=== PATIENT | female | born 1955 | race African-American/Black ===

== ENCOUNTER 2017-03-23 11:04 | Emergency (ER) | payer OTHER ==
[~2017-03-23] VITALS: Ht 154.9 cm; Wt 86.2 kg
[~2017-03-23 11:04] MED LIST: BACTRIM DS TAB1 EAC1 ORAL; HYDROCHLOROTH12.5 M2 ORAL; HYDROCHLOROTHIA25 MG ORAL; IBUPROFEN600 MG ORAL; KEFLEX500 MG ORAL; LISINOPRIL10 MG ORAL; LISINOPRIL20 MG ORAL; MECLIZINE HCL25 MG ORAL; NORCO 5-325 TA1 EACH ORAL; PROTONIX40 MG ORAL
[2017-03-23] MEDS ORDERED: ATENOLOL25 MG ORAL (11:13)
[2017-03-23] MEDS ORDERED: Morphine Sulfate 4mg/ml Inj IVP ONE (11:30)
[2017-03-23 11:48] LABS: APPEARANCE,URINE CLEAR; KETONES,URINE NEGATIVE (NEGATIVE); LEUKOCYTE ESTERASE ,URINE NEGATIVE (NEGATIVE); NITRITE,URINE NEGATIVE (NEGATIVE); PH,URINE 6 (4.5-8.0); PROTEIN,URINE NEGATIVE (NEGATIVE); UROBILINOGEN,URINE NORMAL MG/DL (0.0-1.0)
[2017-03-23 11:49] LABS: BASOPHILS % (AUTO) 0.3 % (0.0-2.0); EOSINOPHILS % (AUTO) 0.4 % (0.0-3.0); LYMPHOCYTES % (AUTO) 27.5 % (20.0-45.0); MEAN CORPUSCULAR HEMOGLOBIN 27.3 PG (27.0-31.0); MEAN CORPUSCULAR VOLUME 85 FL (80-99); MEAN PLATELET VOLUME 6.6 FL (6.5-10.1); MONOCYTES % (AUTO) 7.2 % (1.0-10.0); NEUTROPHILS % (AUTO) 64.5 % (45.0-75.0); PLATELET COUNT 351 K/UL (150-450); RED BLOOD COUNT 4.97 M/UL (4.20-5.40); RED CELL DISTRIBUTION WIDTH 13.1 % (11.6-14.8)
[2017-03-23 11:55] VITALS: BP 127/65
[2017-03-23 11:59] LABS: TROPONIN I < 0.30 ng/mL (<=0.30)
[2017-03-23 12:00] LABS: ALANINE AMINOTRANSFERASE 30 U/L (3-33); ANION GAP 12 (5-15); ASPARTATE AMINO TRANSFERASE 15 U/L (5-40); CALCIUM 9.2 mg/dL (8.6-10.2); CARBON DIOXIDE 28 mEQ/L (20-30); CHLORIDE 100 mEQ/L (98-107); GLOMERULAR FILTRATION RATE > 60 mL/min (>60); HEMOLYSIS 5; LIPASE 17 U/L (< 60); POTASSIUM 3.9 mEQ/L (3.4-4.9); SODIUM 140 mEQ/L (135-145); TOTAL PROTEIN 8.1 g/dL (6.6-8.7)
--- NOTE | 2017-03-23 12:06 | Emergency Room Report ---
History of Present Illness General Chief Complaint: Abdominal Pain Source: Patient Present Illness HPI Patient present with complaints of mid abdominal pain Radiation bilaterally towards the back Denies any lower abdominal pain Patient has had increased nausea and vomiting Denies any diarrhea reports lack of bowel movement for the past 6 days Patient reports recent ER visit With imaging and blood work unfortunately not able to provide us any further information Pain is 10 out of 10 denies any fevers denies any dysuria frequency Allergies: Coded Allergies: STEVEN INHIBITORS (Verified Allergy, Unknown, 03/23/17) IBUPROFEN (Verified Allergy, Unknown, 03/23/17) TRAMADOL (Verified Allergy, Unknown, 03/23/17) Uncoded Allergies: STEVEN (Allergy, Unknown, 03/23/17) Patient History Past Medical History: see triage record Pertinent Family History: none Reviewed Nursing Documentation: PMH: Agreed, PSxH: Agreed Nursing Documentation-PMH Hx Hypertension: Yes Hx Gastrointestinal Problems: Yes - gastric ulcer Review of Systems All Other Systems: negative except mentioned in HPI Physical Exam Vital Signs Date Time Temp Pulse Resp B/P Pulse Ox O2 Delivery O2 Flow Rate FiO2 03/23/17 11:06 98.4 54 20 137/84 97 Room Air Sp02 EP Interpretation: reviewed, normal General Appearance: well appearing, no apparent distress Head: normocephalic, atraumatic Eyes: bilateral eye EOMI, bilateral eye PERRL ENT: hearing grossly normal, normal pharynx, TMs + canals normal, uvula midline Neck: full range of motion, supple, no meningismus, no bony tend Respiratory: lungs clear, normal breath sounds, no rhonchi, no respiratory distress, no retraction, no accessory muscle use Cardiovascular #1: normal peripheral pulses, regular rate, rhythm, no edema, no gallop, no JVD, no murmur Gastrointestinal: normal bowel sounds, no organomegaly, non-distended, no guarding, no hernia, no pulsatile mass, no rebound, tenderness - Diffusely however mainly reproducibly epigastric area, Genitourinary: no CVA tenderness Musculoskeletal: normal inspection Neurologic: oriented x3, responsive, cable respooler III-XII nml as tested, motor strength/ tone normal, sensory intact Psychiatric: mood/affect normal Skin: normal color, no rash, warm/dry, palpation normal Lymphatic: normal inspection, no adenopathy Medical Decision Making Diagnostic Impression: Primary Impression: abdominal pain ER Course With the history exam and presentation, multiple differentials considered, including but not limited to appendicitis, gastritis, cholecystitis, diverticulitis Patient's baseline bloodwork is appropriate We did attempt multiple times to obtain CT results from previous hospital otherwise unable to obtain this given the patient's level of pain CT was obtained here prior to transfer Patient's CT does not show any obvious acute pathology Patient remained uncomfortable At this time requires further inpatient care Secondary to insurance purposes patient required transfer Labs Test 03/23/17 11:33 White Blood Count 12.0 K/UL (4.8-10.8) Red Blood Count 4.97 M/UL (4.20-5.40) Hemoglobin 13.6 G/DL (12.0-16.0) Hematocrit 42.3 % (37.0-47.0) Mean Corpuscular Volume 85 FL (80-99) Mean Corpuscular Hemoglobin 27.3 PG (27.0-31.0) Mean Corpuscular Hemoglobin Concent 32.0 G/DL (32.0-36.0) Red Cell Distribution Width 13.1 % (11.6-14.8) Platelet Count 351 K/UL (150-450) Mean Platelet Volume 6.6 FL (6.5-10.1) Neutrophils (%) (Auto) 64.5 % (45.0-75.0) Lymphocytes (%) (Auto) 27.5 % (20.0-45.0) Monocytes (%) (Auto) 7.2 % (1.0-10.0) Eosinophils (%) (Auto) 0.4 % (0.0-3.0) Basophils (%) (Auto) 0.3 % (0.0-2.0) Urine Color Pale yellow Urine Appearance Clear Urine pH 6 (4.5-8.0) Urine Specific [place] 1.015 (1.005-1.035) Urine Protein Negative (NEGATIVE) Urine Glucose (UA) Negative (NEGATIVE) Urine Ketones Negative (NEGATIVE) Urine Occult Blood Negative (NEGATIVE) Urine Nitrite Negative (NEGATIVE) Urine Bilirubin Negative (NEGATIVE) Urine Urobilinogen Normal MG/DL (0.0-1.0) Urine Leukocyte Esterase Negative (NEGATIVE) Sodium Level 140 mEQ/L (135-145) Potassium Level 3.9 mEQ/L (3.4-4.9) Chloride Level 100 mEQ/L (98-107) Carbon Dioxide Level 28 mEQ/L (20-30) Anion Gap 12 (5-15) Blood Urea Nitrogen 9 mg/dL (7-23) Creatinine 1.0 mg/dL (0.5-0.9) Estimat Glomerular Filtration Rate > 60 mL/min (>60) Glucose Level 122 mg/dL (74-106) Calcium Level 9.2 mg/dL (8.6-10.2) Total Bilirubin 0.6 mg/dL (0.0-1.2) Aspartate Amino Transf (AST/SGOT) 15 U/L (5-40) Alanine Aminotransferase (ALT/SGPT) 30 U/L (3-33) Alkaline Phosphatase 70 U/L (35-104) Total Creatine Kinase 151 U/L (26-140) Creatine Kinase MB 2.0 ng/mL (< 3.8) Creatine Kinase MB Relative Index 1.3 Troponin I < 0.30 ng/mL (<=0.30) Total Protein 8.1 g/dL (6.6-8.7) Albumin 4.2 g/dL (3.5-5.2) Globulin 3.9 g/dL Albumin/Globulin Ratio 1.0 (1.0-2.7) Lipase 17 U/L (< 60) Rhythm Strip Diag. Results EP Interpretation: yes Rate: 77 Rhythm: NSR, no PVC's, no ectopy CT/MRI/US Diagnostic Results CT/MRI/US Diagnostic Results : Impression CT abdomen pelvis: Mild right posterior basilar atelectasis, diverticulosis normal appendix uterine fibroid Last Vital Signs Date Time Temp Pulse Resp B/P Pulse Ox O2 Delivery O2 Flow Rate FiO2 03/23/17 11:55 98.1 55 18 127/65 98 Room Air Status: improved Disposition: XFER SHT-TRM HOSP Condition: Serious Referrals: [facility],REFERRING (PCP) OPAL RCAWFORD D.O. Mar 23, 2017 12:06
[2017-03-23 14:00] VITALS: BP 121/72
--- NOTE | 2017-03-24 08:33 | Diagnostic Imaging Report ---
Clinical Indication: Abdominal pain Technique: No oral contrast utilized, per emergency room physician request IV administration nonionic contrast. Venous phase spiral acquisition obtained through the abdomen and pelvis. Multiplanar reconstructions were generated. Total dose length product 932 mGycm. CTDIvol(s) 18 mGy. Dose reduction achieved using automated exposure control Comparison: None Findings: The appendix is normal. There are distal colonic diverticula. No evidence of diverticulitis. No small bowel distention. No free or loculated intraperitoneal air or fluid. Distal is unremarkable. There is equivocal slight wall thickening of the gastric fundus, antrum, and of the proximal duodenum, although suspect this is just artifact of under distention. The gallbladder is surgically absent. The bile ducts are upper limits normal in caliber, and there is mild central intrahepatic biliary ductal dilatation. The liver is unremarkable. The pancreas, spleen, adrenals, kidneys are unremarkable. No retroperitoneal or mesenteric mass or adenopathy. No pelvic mass or adenopathy. The uterus contains a calcification in the fundus, probably within a slightly exophytic subserosal fibroid. The ovaries are unremarkable. The bladder is distended. The included lung bases demonstrate atelectatic changes. The heart is mildly enlarged. The bones demonstrate degenerative proliferative changes of the lumbar spine. Impression: Equivocal slight wall thickening of the gastric fundus, antrum, proximal duodenum, probably just artifact of under distention but could indicate mild gastro-duodenitis changes. Correlation with clinical findings is advised. No acute abnormality otherwise Surgically absent gallbladder. Mild central intrahepatic biliary ductal dilatation, likely related to postcholecystectomy state. Correlate with liver function tests, consider MRCP if clinically indicated Diverticulosis. No evidence of diverticulitis Cardiomegaly Small calcified uterine fibroid Basilar pulmonary atelectasis Degenerative spondylosis This agrees with the preliminary interpretation provided overnight by Dr. Sharma The CT scanner at [facility] is accredited by the [employer] and the scans are performed using protocols designed to limit radiation exposure to as low as reasonably achievable to attain images of sufficient resolution adequate for diagnostic evaluation.
== END 2017-03-23 14:00 | disposition short-term general hospital (02) ==
LOC: EMR 11:44
DX: R10.9 Unspecified abdominal pain (principal); M54.9 Dorsalgia, unspecified; Z88.6 Allergy status to analgesic agent; Z91.048 Other nonmedicinal substance allergy status; R11.2 Nausea with vomiting, unspecified; I10 Essential (primary) hypertension; Z90.49 Acquired absence of other specified parts of digestive tract; I51.7 Cardiomegaly; M47.9 Spondylosis, unspecified; J98.11 Atelectasis; D25.9 Leiomyoma of uterus, unspecified; K57.90 Diverticulosis of intestine, part unspecified, without perforation or abscess without bleeding
CPT/HCPCS: 36415; 74177; 80053; 81003; 82550; 82553; 83690; 84484; 85025; 93005; 96374; 96375; 99285; J2270; J2405; Q9967